=== PATIENT | male | born 2000 | race African-American/Black ===

== ENCOUNTER 2018-08-01 03:26 | Emergency (ER) | payer SELFPAY ==
[~2018-08-01] VITALS: Ht 182.9 cm; Wt 73.0 kg
[2018-08-01 03:34] VITALS: Ht 182.9 cm; Wt 73.0 kg
[2018-08-01 04:45] LABS: BASOPHIL % 0.7 % (0-2); RED CELL DISTRIBUTION WIDTH 12.9 % (11.5-14.5)
[2018-08-01 05:05] LABS: AMPHETAMINE QUAL UR NONE DETECTED (See below)
[2018-08-01 05:05] LABS: PLATELET COUNT 95 x10^3mcL (130-400)
[2018-08-01 05:19] LABS: CALCIUM 9.6 mg/dL (8.5-10.1); CARBON DIOXIDE 26.7 mmol/L (21-32); CHLORIDE SERUM 103 mmol/L (98-107); CREATININE SERUM 1.5 mg/dL (0.7-1.3); GFR1 > 60 mL/min; GLUCOSE SERUM 142 mg/dL (74-106); POTASSIUM SERUM 4.4 mmol/L (3.5-5.1); SODIUM SERUM 140 mmol/L (136-145)
[2018-08-01 05:23] LABS: ALBUMIN 4.4 g/dL (3.4-5.0); ALKALINE PHOSPHATASE 70 U/L (46-116); ALT/SGPT 18 U/L (16-63); AST/SGOT 15 U/L (15-37); BILIRUBIN TOTAL 0.71 mg/dL (0.20-1.00); TOTAL PROTEIN, SERUM 7.9 g/dL (6.4-8.2)
[2018-08-01 07:20] VITALS: BP 136/70
== END 2018-08-01 07:20 | disposition home or self-care (01) ==
LOC: ED 03:26
PROVIDERS: Emergency Medicine
DX: N28.9 Disorder of kidney and ureter, unspecified (principal); F12.90 Cannabis use, unspecified, uncomplicated
CPT/HCPCS: 36415; G0480

== ENCOUNTER 2018-08-01 13:00 | Emergency (ER) | payer MEDICAID ==
[~2018-08-01] VITALS: Ht 182.9 cm; Wt 71.7 kg
[2018-08-01 13:08] VITALS: Ht 182.9 cm; Wt 71.7 kg
[2018-08-01 14:50] VITALS: BP 140/73
== END 2018-08-01 14:50 | disposition home or self-care (01) ==
LOC: ED 13:00
DX: R53.83 Other fatigue (principal); F41.9 Anxiety disorder, unspecified; F12.90 Cannabis use, unspecified, uncomplicated